=== PATIENT | male | born 1945 | race Caucasian/White ===

== ENCOUNTER → 2018-02-10 12:14 | Outpatient (CLI) | payer MEDICARE, OTHER, SELFPAY ==
[2018-02-10 12:48] LABS: 585 Gram Check PASS; Amount Collected in g 585 GRAM; Dizziness NO; Postdiastolic BP 76; Postsystolic BP 121; Prediastolic 77; Presystolic 136; Pulse 71; Site of phlebotomy RIGHT AC; Swelling NO; Therapeutic Phleb Comment NO COMMENT; Zero Check Sebra Scale PASS
[2018-02-10 13:07] LABS: Add Manual Diff / Slide Review NO; Basophils Percent Auto 1.1 % (0-2); Eosinophils Percent Auto 1.2 % (2-4); Hematocrit 52.4 % (41-53); Hemoglobin 18.2 g/dL (13.5-17.5); Lymphocytes Percent Auto 17.6 % (25-40); Mean Corpuscular HGB Conc 34.7 % (30-36); Mean Corpuscular Hemoglobin 31.2 PG (26-34); Mean Corpuscular Volume 89.8 fL (80-100); Neutrophils Absolute Auto 4400 /uL (3000-5900); Neutrophils Percent Auto 69.1 % (50-75); Platelet Count 163 X10^3/uL (150-400); Red Blood Cell Count 5.83 X10^6/uL (4.5-5.9); Red Cell Distribution Width 14.6 % (11.6-14.8); White Blood Cell Count 6.4 X10^3/uL (4.5-11.0)
[2018-02-10 13:41] LABS: Alanine Aminotransferase 48 IU/L (21-72); Albumin 4.7 g/dL (3.5-5.0); Albumin Globulin Ratio 1.5 (1.0-2.8); Alkaline Phosphatase 71 U/L (38-126); Aspartate Aminotransferase 38 IU/L (17-59); BUN Creatinine Ratio 13.6 (6-22); Bilirubin Total 1.2 mg/dL (0.2-1.3); Blood Urea Nitrogen 15 mg/dL (9-20); Calcium 9.5 mg/dL (8.4-10.2); Carbon Dioxide 27 mmol/L (22-32); Chloride 100 mmol/L (98-107); Estimated Glomerular Filt Rate > 60.0 mL/min (>60); Globulin 3.2 g/dL (1.7-4.1); Glucose 85 mg/dL (80-110); HEMOLYSIS 32 (0-50); Potassium 3.7 mmol/L (3.4-5.1); Sodium 142 mmol/L (137-145); Total Protein 7.9 g/dL (6.3-8.2)
== END ==
PROVIDERS: Family Provider Family Medicine; PCP Family Medicine; Visit Provider Internal Medicine Hematology & Oncology
DX: D75.1 Secondary polycythemia (principal)
CPT/HCPCS: 80053; 85025; 99195

== ENCOUNTER 2020-06-21 12:53 | Day surgery (SDC) | payer MEDICARE, OTHER, SELFPAY ==
--- NOTE | 2020-06-20 19:24 | PM.PREOP ---
Pre-operative Note COVID-19 COVID-19 status: Negative Interval Note History & Physical reviewed/Exam performed by Physician: Yes Changes to H&P: No
--- NOTE | 2020-06-21 08:01 | P.OP_ITS ---
Operative Date/Time/Diagnoses Date of procedure: 06/21/20 Time of procedure: 13:15 Procedure & Clinicians Procedure: Preoperative diagnoses: 1. Left nuclear sclerotic and cataract. 2. Astigmatism which is to be corrected with a toric intraocular lens implant and increased range of vision with Vivity toric lens. 3. Enlarged prostate without use of Flomax. 4. Previous Flomax. Postoperative diagnoses: 1. Cataract removal with phacoemulsification with toric posterior chamber intraocular lens implant placed. Procedure: Phacoemulsification with posterior chamber toric intraocular lens implant. Surgeon: Iraida qIbal MD Complications: None Specimen: None Implant: [id number] [place] 174. 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 He plays golf and 7 exceptional problems seeing the ball. The patient wants surgery to improve vision and astigmatism and increased range of vision with a specialty intra-ocular lens. He understands he will need reading glasses. He understands extra risk of surgery during the COVID-19 epidemic and wishes to proceed. He has tested COVID-19 virus negative within 72 hours of the procedure. The patient was taken to the operating room and proparacaine drops placed. Indelible ink barajas were placed at the 90 and 180 degree meridian. The patient was placed on the operating room table and given IV sedation. A retrobulbar block insert consisting of 6 cc of 2% xylocaine without epinephrine mixed half and half with 0.5% Marcaine with 1 cc of hyaluronidase added is placed between the medial and lateral 1/3 of the inferior orbital rim. The eye is manually massaged for 30 sec, prepped using Betadine solution, and draped in the usual sterile fashion. Temporal approach was made, a 1 mm side-port incision was made 90? from the proposed corneal wound. Phenylephrine 1.5% mixed with 1% xylocaine 0.2 cc was placed into the anterior chamber. Viscoat followed by Healon was then placed. A 2.6 mm clear incision with a 2.6 mm blade was placed at the 170 degree meridian. A 360 degree capsulorrhexis style capsulotomy was then performed with a cystitome needle on a Healon. Hydrodelineation and hydrodissection were performed. The phacoemulsification unit is introduced, and sculpting used to groove the central lens. It is then removed in chopping mode. Epi nucleus is removed with epinuclear mode and irrigation aspiration was used to remove the peripheral cortex. The posterior capsule is polished. The intraocular lens is selected, inspected, power confirmed, and placed in the posterior chamber at the desired meridian of 175?. The pupil was not constricted. The wound was stromally hydrated and tested for leaks, there was none and it was left sutureless. Vigamox 0.1 cc was placed into the anterior chamber. Kenalog 0.2 cc was placed in the superior subconjunctival space. A drop of antibiotic and was placed and the eye was patched and shielded. The patient was stable and returned to the recovery room in excellent condition. Dictated by: Iraida Iqbal MD Copy to: [facility] Same procedure as scheduled: Yes
[2020-06-21] MEDS: PROPARACAINE 0.5% OPHTH SOL 2 DROPS EYE-OP (13:28)
[2020-06-21] MEDS: CATARACT EYE COMPOUND (10 DROPS/SYRINGE) 3 DROPS EYE-OP (13:29)
[2020-06-21 13:34] VITALS: BP 116/74; PULSE 68; RESP 16; TEMP 36.3; O2SAT 97; BMI 31.0
[2020-06-21] MEDS: LIDOCAINE 2% 4 ML, BUPIVACAINE 0.5% (PF) 4 ML, HYALURONIDASE 150 UNIT INJ (17:07)
[2020-06-21] MEDS: PHENYLEPHRINE/LIDOCAINE VIAL (OR) 0.2 ML EYE-OP (17:08)
[2020-06-21] MEDS: HYALURONATE SODIUM 10 MG/ML SYRINGE INJ (17:08)
[2020-06-21] MEDS: CHONDROIDTIN/SOD HYALURONATE 1.05 ML SYRINGE INTRAOCULA (17:08)
[2020-06-21] MEDS: BALANCED SALT IRRIG SOLN NO.2 500 ML, EPINEPHrine 1 MG IRR (17:08)
[2020-06-21] MEDS: TRIAMCINOLONE 50 MG/5 ML VIAL INJ (17:09)
[2020-06-21] MEDS: MOXIFLOXACIN INJ 4 MG/0.8 ML VIAL 0.5 MG EYE-OP (17:09)
[2020-06-21] MEDS: ERYTHROMYCIN OPHTH 1 GM OINT 1 APPLIC EYE-LEFT (17:09)
[2020-06-21 17:35] VITALS: BP 130/77; PULSE 65; RESP 16; TEMP 36.5; O2SAT 96
== END 2020-06-21 17:45 | disposition home or self-care (01) ==
LOC: OR 13:00
PROVIDERS: Family Provider Family Medicine; PCP Family Medicine; Referring Provider Ophthalmology; Visit Provider Ophthalmology
PROC: (CPT 66984; principal; 2020-06-21 14:15)
DX: H25.812 Combined forms of age-related cataract, left eye (principal); H52.202 Unspecified astigmatism, left eye; I10 Essential (primary) hypertension
CPT/HCPCS: 66984; J0171; J2704; J3301; J3470; V2788

== ENCOUNTER 2021-03-14 11:27 | Observation (INO) | payer MEDICARE, OTHER, SELFPAY ==
[2021-03-06 09:58] VITALS: BMI 30.8
[2021-03-13] VITALS (16 sets, daily range): BP systolic 107–165; BP diastolic 60–86; PULSE 66–86; RESP 13–18; TEMP 36.6–37.9; O2SAT 93–99; BMI 30.8
--- NOTE | 2021-03-13 07:11 | DI.RAD.S_ITS ---
PROCEDURE: XR HIP W PEL IF DONE RT 2V INDICATIONS: total right hip TECHNIQUE: AP pelvis and lateral view of the right hip acquired. COMPARISON: [facility], FAYE, XR PELVIS 1-2V, 03/13/2021, 12:39. FINDINGS: Bones: Patient is status post right hip arthroplasty, with hardware components in expected positions. The hip joint appears congruent. Severe left hip joint space narrowing and periarticular osteophyte formation. The visualized bony structures appear intact. Soft tissues: Overlying postoperative changes are noted. No suspicious soft tissue densities. IMPRESSION: Expected appearance of right hip arthroplasty. Dictated by: Agens Ortiz M.D. on 03/13/2021 at 16:47 Approved by: Agnes Ortiz M.D. on 03/13/2021 at 16:48
[2021-03-13 10:04] LABS: COVID19 -Nasal RAPID Negative (Negative)
[2021-03-13] MEDS: ACETAMINOPHEN 325 MG TABLET 975 MG PO (10:05)
[2021-03-13] MEDS: VANCOMYCIN 1,000 MG/200 ML PIGGYBACK 200 MG IV (10:10)
--- NOTE | 2021-03-13 10:57 | P.OP_ITS ---
Operative Date/Time/Diagnoses Date of procedure: 03/13/21 Time of procedure: 10:59 Pre-op diagnosis: Severe right hip osteoarthritis Post-op diagnosis: same Procedure & Clinicians Procedure: Right total hip arthroplasty posterior approach Same procedure as scheduled: Yes Indications: The patient has had progressively worsening right hip pain with radiographic changes consistent with arthritis. Non-operative management has failed and the patient has requested total hip replacement. The risks, benefits and alternatives to surgery were discussed with the patient prior to proceeding. Risks discussed included, but were not limited to, failure to relieve pain, leg length discrepancy, dislocation, stiffness, infection, nerve damage, deep venous thrombosis, pulmonary embolism, stroke, coma, heart attack, permanent paralysis and , as well as the potential need for eventual revision of the prosthetic. Surgeon: Nicki Arredondo Platform Power Technician: Abby Keyes Anesthesia Type: General Operative Notes Findings: Severe right hip osteoarthritis, adequate stability, adequate bone Closure Type: primary Specimen(s): none sent Prosthetic devices, grafts, tissues, transplants, or devices: Arredondo and nephew anthology size 10 standard, 58 mm R3, 36 by - 3 cobalt chrome, neutral poly liner, one 15 mm 6.5 screw Applied: drain(s) Estimated Blood Loss (mL): 250 Blood products transfused: none Procedure in detail: The patient was seen in the pre-operative area, where the patient identified the right hip as the operative site and this was marked with my initials. The patient received pre-operative antibiotics and was taken to the operating room and placed on the operative table in the left lateral decubitus position after satisfactory anesthesia. A horse race timer out was performed. The right leg was prepared from the ankle to the iliac crest with ChloroPrep in the usual fashion and draped through sterile drapes. The hip was approached through an approximately 20 cm incision centered over the greater trochanter and curving gently posteriorly as it went proximally. This was carried sharply to the fascia sayda, which was divided and retracted with a self retaining retractor. The trochanteric bursa was excised with care being taken to avoid the sciatic nerve, which was identified and protected throughout the case. The short external rotators were incised and the capsulomuscular flap was raised and tagged for later repair. He had an extremely tight hip and extensive additional soft tissue mobilizing was required in order to provide adequate exposure. The hip was dislocated, and a femoral neck osteotomy performed approximately 15 mm above the lesser trochanter. Retractors were placed around the femur. The canal was opened with a box cutting osteotome, followed by a T handled reamer and a lateralizing reamer. The chili pepper broach was then used, followed by sequential broaching until there was good stability of the broach in the femur. Retractors were placed to expose the acetabulum. The labrum and central soft tissues were removed. There was moderate osteophyte formation around the hip. Was somewhat difficult to mobilize the femur anteriorly as he had a substantial preoperative flexion contracture as well as an Abduction contracture. Reaming was performed initially going up in 2 mm increments, then 1 mm increments until good bite was obtained with an odd sized reamer. The cup 1 mm larger than the last reamer was then inserted using the appropriate anteversion guides. A trial neutral liner was placed. The broach was placed in the canal. A trial head and neck were then placed and the hip relocated and checked for leg length and stability. An intraoperative film confirmed the component position and no evidence of fracture. The patient was stable in the position of sleep, of squatting, and could be put through a range of motion with 45 degrees internal rotation without dislocation. At 90 degrees flexion, internal rotation to 70 ? was possible before dislocation. This was felt to be satisfactory and the appropriate components were opened, and the trials were removed. The acetabulum was further stabilized with a single screw. The acetabular liner was impacted into position. The final stem was then impacted into the prepared femoral canal. A brief Betadine soak was performed while trialing with head options. The hip was meticulously irrigated with normal saline. Finally the femoral head was impacted onto the stem. The acetabulum was cleared of all material and the hip relocated one final time. The capsulomuscular flap was then repaired to the greater trochanter though an awl hole using the tag sutures. The short external rotators were repaired with a nonabsorbable suture. A deep drain was placed and brought out anteriorly. The fascia sayda was closed with Vicryl. The subcutaneous layer was closed with barbed sutures and SteriStrips. An Aquacel Ag dressing was applied and the patient was taken to recovery having tolerated the procedure well. Complications: none Post-operative Condition: stable Disposition: Acute Care Plan for aftercare: The patient will be maintained on a standard total hip replacement protocol with weight bearing as tolerated and posterior hip precautions. The patient will receive Aspirin and sequential compression devices for DVT prophylaxis. The patient will be discharged home when safe for the home environment.
--- NOTE | 2021-03-13 10:57 | PM.PREOP ---
Pre-operative Note COVID-19 COVID-19 status: Negative Interval Note History & Physical reviewed/Exam performed by Physician: Yes Changes to H&P: No
--- NOTE | 2021-03-13 11:00 | DI.RAD.S_ITS ---
PROCEDURE: XR PELVIS 1-2V INDICATIONS: INNER OP TECHNIQUE: Intra-operative view of the pelvis and hip acquired. COMPARISON: [facility], CR, XR PELVIS WITH BILATERAL LATERAL HIPS, 11/08/2020, 13:58. [facility], CR, XR HIP W PEL IF DONE RT 2V, 03/13/2021, 14:08. FINDINGS: Bones: Intraoperative devices prior to placement of arthroplasty prostheses are in expected positions. No fractures or suspicious bony lesions. Severe left hip osteoarthrosis. Soft tissues: Overlying surgical retractors are present, along with other intraoperative changes. IMPRESSION: Intraoperative images demonstrate right hip arthroplasty components. Dictated by: Deep Sparks M.D. on 03/13/2021 at 14:40 Approved by: Deep Sparks M.D. on 03/13/2021 at 14:41
[2021-03-13] MEDS: TRANEXAMIC ACID 1,000 MG VIAL 2000 MG INJ ×2 (11:21→13:18)
[2021-03-13] MEDS: CEFAZOLIN 2 GM/20 ML SYRINGE IV ×2 (11:30→19:57)
--- NOTE | 2021-03-13 11:40 | SUR.OPER ---
Lateral on padded OR bed. Gel axillary roll. Arms secured on padded armboard with pillow supporting top arm. Padded hip positioner braces x4 - anterior and posterior chest and pelvis. Additional gel pad used anterior pelvis. Gel pad under bottom leg from knee to foot and secured with tape over sheet.
[2021-03-13] MEDS: BUPIVACAINE LIPOSOME 266 MG/20 ML VIAL INJ ×2 (11:49→11:50)
[2021-03-13] MEDS: BUPIVACAINE 0.25% (PF) 60 ML, EPINEPHrine 0.3 MG INJ (11:49)
[2021-03-13] MEDS: LACTATED RINGERS 1,000 ML 42 ML IV (12:22)
--- NOTE | 2021-03-13 14:59 | SUR.PHASEI ---
Pt very stoic and denies pain. Report to JACQUELYN Soto. Transported by Kathya to room 222. Pt in stable condition
[2021-03-13] MEDS: ACETAMINOPHEN 325 MG TABLET 650 MG PO ×2 (17:01→20:02)
[2021-03-13] MEDS: IBUPROFEN 400 MG TABLET PO ×2 (17:01→20:03)
[2021-03-13] MEDS: LACTATED RINGERS 1,000 ML 125 ML IV (17:02)
--- NOTE | 2021-03-13 18:11 | PC.NURSE ---
1500, patient admitted to room 222, at bedside. Awake and oriented but sleepy. VSS. Denies pain. Oriented to room and call light. Aquacel dressing and hemovac in place. Patient moving all extremities, denies numbness or tingling. Urinal place at bedside. Continue to monitor.
[2021-03-13] MEDS: ASPIRIN EC 81 MG TABLET PO (20:03)
[2021-03-13] MEDS: DOCUSATE 100 MG CAPSULE PO (20:03)
[2021-03-14] MEDS: IBUPROFEN 400 MG TABLET PO ×4 (01:25→13:52)
[2021-03-14] MEDS: CEFAZOLIN 2 GM/20 ML SYRINGE IV (03:35)
[2021-03-14 03:58] VITALS: BP 128/69; PULSE 79; RESP 17; TEMP 36.7; O2SAT 97
[2021-03-14 05:43] LABS: Hematocrit 41.7 % (41-53); Hemoglobin 14.3 g/dL (13.5-17.5)
[2021-03-14 08:25] VITALS: BP 116/60; PULSE 63; RESP 16; TEMP 36.8; O2SAT 97
[2021-03-14] MEDS: ACETAMINOPHEN 325 MG TABLET 650 MG PO ×2 (09:29→13:52)
[2021-03-14] MEDS: hydroCHLOROthiazide 25 MG TABLET 12.5 MG PO (09:30)
[2021-03-14] MEDS: lisinopriL 20 MG TABLET PO (09:30)
[2021-03-14] MEDS: DOCUSATE 100 MG CAPSULE PO (09:30)
[2021-03-14] MEDS: ASPIRIN EC 81 MG TABLET PO (09:30)
[2021-03-14] MEDS: allopurinoL 300 MG TABLET 100 MG PO (09:31)
[2021-03-14] MEDS: CHOLECALCIFEROL (VITAMIN D3) 1,000 UNIT TABLET 2000 UNIT PO (09:31)
--- NOTE | 2021-03-14 09:41 | P.DS_ITS ---
History of Present Illness History of Present Illness Date Patient Seen: 03/14/21 Time Patient Seen: 09:42 Chief complaint: RT ANDREY *OPB* Narrative: The patient presented to Dr Arredondo with progressively worsening right hip pain with radiographic changes consistent with arthritis. Non-operative management has failed and the patient has requested total hip replacement. Prosthetic devices, grafts, tissues, transplants, or devices: Arredondo and nephew anthology size 10 standard, 58 mm R3, 36 by - 3 cobalt chrome, neutral poly liner, one 15 mm 6.5 screw Applied: hemovac drain(s) Estimated Blood Loss (mL): 250 Blood products transfused: none Aspiring 81 mg once daily only x 6 weeks for VTE prophylaxis d/t pt history of thrombocytopenia. Discharge Providers Provider Date of admission: 03/13/2021 Discharge Date: 03/14/21 Primary care physician: Jim Tovar MD Consults: 03/06/21 11:57 Consult to Anesthesiology Routine Comment: Consulting Provider: Anesthesiologist Reason for consultation: PAC courtesy re: Cardiology pre-operative recommendations 03/13/21 07:11 Consult to Anesthesiology Routine Comment: Consulting Provider: Anesthesiologist Reason for consultation: Regional block for post operative pain control 03/13/21 14:58 Consult to Discharge Planning Routine Comment: Consult to Physical Therapy Evaluate & Treat Comment: Physician Instructions: post op ANDREY protocol Consult to Respiratory Therapy Evaluate & Treat Comment: Physician Instructions: Evaluate and treat Discharge provider: Abby Keyes PA-C Summary Hospital Course Discharge Diagnosis: s/p RIGHT total hip arthroplasty, posterior approach Hospital Course: On POD#1 pt was feeling well, had 0/10 pain without the use of narcotic pain medication. No N/V, good appetite. Urinating without difficulty. Wanted to go home, denied need for narcotic prescription. Status at Discharge Cognitive/behavioral status at discharge: oriented and calm Functional status at discharge: uses cane/walker Exam Vital Signs (past 8 hours): - 03/14/21 03:58 03/14/21 08:25 Temperature 98.1 F 98.3 F Pulse Rate 79 63 Respiratory Rate 17 16 Blood Pressure 128/69 116/60 Pulse Oximetry 97 97 Oxygen Delivery Method Room Air Oxygen Flow Rate 0 Extrem Other: 5/5 strength quadriceps, hamstrings, plantarflexion, dorsiflexion bilaterally. Sensation to light touch intact throughout BLE. Calves soft, compressible, nontender and without palpable cords or masses bilaterally. Objective Labs Result Diagrams: 03/14/21 05:02 Labs: Laboratory Results - last 24 hr 03/13/21 03/14/21 09:28 05:02 Hgb 14.3 Hct 41.7 SARS-CoV-2 (PCR) Negative PFSH Medical History (Updated 03/06/21 @ 11:43 by Dorota Duque RN) HTN (hypertension) Inguinal hernia Surgical History (Updated 03/06/21 @ 10:06 by Dorota Duque RN) History of left cataract surgery Hx of right inguinal hernia repair (1961) Status post cholecystectomy Family History (Updated 05/26/16 @ 00:00 by Conversion Provider) Father Prostate cancer Social History household members: spouse Smoking Status: Former smoker alcohol intake: former Discharge Assessment & Plan Assessment and Plan Assessment: S/p RIGHT total hip arthroplasty. Recovery as expected. Plan of Treatment: Discharge home, continue outpatient PT, VTE prophylaxis, and follow up in office as scheduled. Discharge Plan Discharge Plan Patient Disposition: Home Discharge orders & Medications Discharge Orders: Discharge (Order); Ordered 03/14/21 Ordered By: Abby Keyes Prescriptions: New aspirin 81 mg Tablet,Delayed Release (Dr/Ec) 81 mg PO DAILY Qty: 60 0RF ibuprofen 400 mg Tablet 400 mg PO Q4HR Qty: 90 0RF Continued lisinopril-hydrochlorothiazide 20 MG/12.5 MG tablet 1 tab PO QDAY Qty: 90 0RF cholecalciferol (vitamin D3) [Vitamin D3] 2,000 unit Capsule 1 cap PO DAILY 0RF allopurinol 300 mg Tablet 100 mg PO DAILY 0RF acetaminophen 500 mg Tablet 1,000 mg PO BID MDD 4000 mg PRN (Reason: Pain) Qty: 60 0RF Follow up/Referrals: Nicki Arredondo MD [Physician] - (Follow up w/ Dr Arredondo as scheduled on 03/28/2021 @ [facility] office @ [id number]) Jim Tovar MD [Primary Care Provider] - Diet/Activity/Treatments Diet: Diet as Tolerated Activity: Weight bearing as tolerated with posterior hip precautions. Ambulate w/ FWW. Cold/Heat Therapy: Ice to affected area for 15 minutes at a time PRN pain. Skin/Wound/Dressing Care Report to your healthcare provider any signs of infection, such as:: chills, fever, night sweats, increased pain, unusual drainage and unusual redness Dressing: Leave Aquacel dressing in place until follow up. May shower with dressing in place; pat dry immediately. No bathing or otherwise soaking incision. Call office if dressing becomes wet inside. Visit Report/Discharge Packet Instructions: DI for Hip Replacement Stand Alone Forms: Surgery Discharge Discharge Data Primary Care Provider: Jim Tovar Attending Provider: Nicki Arredondo
--- NOTE | 2021-03-14 10:01 | PT.IIE ---
Current Diagnoses Unilateral primary osteoarthritis, right hip (03/14/21) Surgery Performed Operation Date: 03/13/21 11:15 Actual Procedures p Total Hip Arthroplasty(Right) - Nicki Arredondo MD Surgical History (Last Updated 03/06/21 @ 10:06 by Dorota Duque, RN) Status post cholecystectomy Medical History (Last Updated 03/06/21 @ 11:43 by Dorota Duque, RN) HTN (hypertension) Inguinal hernia Physical Therapy Inpatient Evaluation/Re-Eval M1 PT/OT-IP Prior Functional Status Start: 03/14/21 12:57 Freq: NEEDED Status: Active Protocol: Document 03/14/21 10:01 AB (Rec: 03/14/21 13:05 AB [id number]) Medical Review Prior Functional Status Medical History Reviewed Yes Communication able to make needs known Mobility and Gait pt stated that he is independent with all mobilities and ambulation without AD Social History Household Members spouse Living Arrangements House Number of Floors (Floors) One Floor Number of Stairs To Enter/Railing? no steps to enter Home Environment High Toilet,Walk in Shower Home Equipment Front Wheel Walker,Hand Held Shower,Postulant M2 PT-IP Current Condition Start: 03/14/21 12:57 Freq: NEEDED Status: Active Protocol: Document 03/14/21 10:01 AB (Rec: 03/14/21 13:05 AB [email or web address]) Physical Therapy Current Condition Current Condition Evaluation Date 03/14/21 Treatment Diagnosis s/p R ANDREY posterior approach; difficulty in walking Onset Date 03/13/20 M3 PT-IP Subjective Start: 03/14/21 12:57 Freq: NEEDED Status: Active Protocol: Document 03/14/21 10:01 AB (Rec: 03/14/21 13:05 AB [email or web address]) Subjective Physical Therapy Visit Type Type Initial Evaluation Visit Start Time 10:01 Visit Stop Time 10:46 Total Visit Minutes 45 Number of SOFTWARE DEVELOPMENT TEST ENGINEER Visits 0 Physical Therapy Visit Comments Patient Comments agreeable to do PT Therapy Pain Assessment Pain When Pain Assessed At Rest Pain Present Pain Present Pain Reported Location Right Hip Intensity 1 Scale Used Numeric (0 - 10) Pain Management Techniques Apply Cold,Modification of Treatment,Re-positioning, Timing of Activity with Medications M4 PT-IP Mobility and Gait Start: 03/14/21 12:57 Freq: NEEDED Status: Active Protocol: Document 03/14/21 10:01 AB (Rec: 03/14/21 13:05 [email or web address]) PT-Bed Mobility Assessment Supine to Sit Supine to Sit Standby Assistance PT-Transfer Assessment Sit to and From Stand Sit to and from Stand Contact Guard Assistance,Use of Upper Extremities Equipment Transfer Assistive Device Gait Belt,Front Wheeled Walker Orthotic/Prosthetic Devices or Brace: No Transfers Transfer Destination Toilet Transfer Technique ambulated Transfer Ability Level of Assist Standby Assistance,Contact Guard Assistance,1 Person Assistance,Use of Upper Extremities Comments Mobility Comments educated pt and spouse regarding posterior hip precautions. pt completed supine to sit SBA. pt requested to use the toilet. completed sit to stand CGA and ambulated to the toilet using FWW CGA. completed toileting SBA. sit to stand from the toilet using grab bar CGA and ambulated to the sink using fWW SBA to CGA. pt was able to maintain standing using FWW for support SBA while completing handwashing. pt ambulated to the chair. educated pt and spouse regarding car transfers and positioning to adhere to hip precautions. pt agreed to do further ambulation. completed sit to stand from chair SBA and ambulated in room using FWW ~ 30 ft SBA to occasional CGA. pt agreed to stay up on chair. positioned on chair. call light and table placed within reach. Gait Assessment Gait Gait Assistance Required: Standby Assistance,Contact Guard Assist Distance (Feet) 30 Able to Maintain Weight Bearing Status Yes During Gait Assistive Devices Assistive Device Gait Belt,Front Wheeled Walker Orthotic/Prosthetic Devices or Brace: No Gait Deviations General Gait Pattern Antalgic,Decreased Stride Length,Decreased Feet Clearance Factors Limiting Gait Function Factors Limiting Gait Function Decreased Activity Tolerance, Decreased Strength,Limited Range of Motion,Pain,Poor Balance PT-Balance Assessment Sitting Balance and Reactions Static Sitting Balance Ability Good Dynamic Sitting Balance Ability Good Standing Balance and Reactions Static Standing Balance Ability Fair Dynamic Standing Balance Ability Fair Device Used FWW M5 PT-IP Objective Assessments Start: 03/14/21 12:57 Freq: NEEDED Status: Active Protocol: Document 03/14/21 10:01 (Rec: 03/14/21 13:05 [id number]) Orientation Orientation/Cognition Level of Alertness Alert Orientation Name,Place,Situation Language Function Ability No Deficits Noted Safety Awareness Understands Safety Issues Memory Description No Deficits Noted Gross Range of Motion Lower Extremity ROM Assessment Within Functional Limits Strength Lower Extremity Strength Assessment Right Impaired Hip 3+/5 Knee 4-/5 Coordination Assessment Gross Coordination Gross Coordination WNL Sensation Assessment Sensation Gross Sensation WNL Muscle Tone Muscle Tone WNL Yes M6 PT-IP Treatment Start: 03/14/21 12:57 Freq: NEEDED Status: Active Protocol: Document 03/14/21 10:01 AB (Rec: 03/14/21 13:05 AB [id number]) Physical Therapy Treatment Education Education Provided Precautions,Weight Bearing Status,Post-Op Packet,Safety M7 PT-IP Assessment and Plan Start: 03/14/21 12:57 Freq: NEEDED Status: Active Protocol: Document 03/14/21 10:01 AB (Rec: 03/14/21 13:05 AB [email or web address]) PT Summary Assessment and Plan Potential Rehabilitation Potential Good Status of Condition at Evaluation Stable Summary Impairments Pain,ROM,Strength,Balance, Coordination,Sensation,Tone, Cognition,Bed Mobility, Transfers,Gait,Activity Tolerance Assessment Summary pt requirng SBA to CGA with mobility using FWW. pt will have his spouse to assist him at home and is set up for outpt PT. pt may go home when medically stable. Goals Bed Mobility Goal Independent Transfer Goal Independent,Front Wheeled Walker Gait Goal Independent,Front Wheel Walker Gait Distance 200 Days to Meet Goals 5 Frequency of Treatment Frequency Of Treatment Twice a Day Treatment Plan Physical Therapy Treatment Plan Bed Mobility Training,Transfer Training,Gait Training, Therapeutic Exercise,Balance Retraining,Post Op Education, Discharge Planning,Hot or Cold Pack,Neuromuscular Re-ed, Coordination Retraining,Manual Therapy Precautions Posterior Hip Precautions No Hip Flexion > 90 degrees,No Hip Internal Rotation,No Hip Adduction Weight Bearing Status Weight Bearing Status Weight Bear as Tolerated Allowed Weight Bearing Amount (enter % RLE WBAT or #) (%) Recommendations To Nursing Amount of Assist Needed 1 Person Assist Discharge Recommendations PT Discharge Recommendations Home with Assistance, Outpatient PT Transportation Needs at Discharge Private Vehicle
--- NOTE | 2021-03-14 10:53 | CM.DANOTE ---
Patient is a 76 yo male who was admitted on 03/13/21 for RTHA. Pt has [employer] and [employer] for insurance and his PCP is Jim Tovar on [facility]. EMR was reviewed. Per Ortho PA, pt tolerated procedure well and stable for d/c to home today after PT. SW met bedside with pt and explained role and pt confirms he lives on [address] with his spouse and has family in [place] but local supportive friends. Pt's DPOA is his spouse and he denies any hx of HH or SNF. Pt is an active golfer and independent with ADL's at baseline and drives. Pt denies any hx of Ortho surgery or admissions and does not anticipate any needs at d/c. Pt states he has used outpt PT prior to surgery on [place] and has appointment set up already after d/c to continue PT. Pt is hopeful to d/c home today and spouse will provide transport home. Per PT, pt ambulated well and recommending home with spouse assist and outpt PT. Plan: Patient to d/c home to [place] via spouse POV today and outpt PT already set up. No further SW needs at this time. ERNESTO Solano Discharge Planning/Care Management CM Discharge Assessment Start: 03/14/21 10:47 Freq: Status: Active Protocol: Document 03/14/21 10:47 BF (Rec: 03/14/21 10:53 BF [id number]) Discharge Planning Assessment Assigned Hay Stacker Operator ERNESTO Gleason DPOA/Assigned Designee Name spouse Vega Cooper Contact Information [phone] Advance Directives? Yes Advance Directives on File No History Provided By Patient,Medical Record Has Patient been admitted in last 30 No days? Prior Living Arrangements House Household Members spouse Type of transporation used prior to Drives own vehicle admit Independent with ADL's Yes Is patient alert and oriented? Yes Caregiver for Another No Community Services used prior to Physical Therapy admission: Patient/Family Preference OP PT Therapy Barriers to Discharge No Discharge Plan Home Community Services Physical Therapy Transportation Arrangement Spouse plans to provide transport at d/c Referrals Initiated None needed Whiteboard Updated in Patient Room with Yes name and ext. # of Hay Stacker Operator Review Status In Process Please Provide Date Initial DC 03/14/21 Assessment Was Performed Next Review Type Continued Stay Review Pre-Anesthesia Assessment Start: 03/06/21 09:58 Freq: Status: Complete Protocol: Document 03/06/21 09:58 CAB (Rec: 03/06/21 11:02 [facility] [id number]) Pre-Anesthesia Assessment Preferred Name Gregory Patient Information Reviewed Via Phone Assessment Assessment Completed With Patient Comment Outside labs/EKG done on JOSE Panda screen on [place] Primary Care Provider Jim Tovar Seen Specialist in Last 12 Months Yes Specialist Seen Handbag Stitcher,Oncologist, Orthopedist Primary Language Belarusian Toll Gate Keeper Required No Height 175.26 cm Weight 94.801 kg Body Mass Index (BMI) 30.8 Hearing Ability Normal Visual Impairment No Limitations Visual Assist None Dentition Type Teeth, Natural Present Barriers to Learning None Hx Anesthesia Reactions No Hx Family Anesthesia Reaction No Hx Malignant Hyperthermia No Hx Blood Transfusions No Hx Blood Transfusion Reaction No Anesthesia Review Requested Yes: Cardiology requesting Arterial line placement alcohol intake former Smoking Status Former smoker how long ago did patient quit smoking 1980 Substance Use Type does not use Pain Present Pain Reported Musculoskeletal Symptoms Abnormal Gait,Difficulty Walking,Joint Pain,Muscle Cramps,Neck Pain History of Falling (Recent or History of No ) Patient is completely paralyzed or No completely immobile Mental Status Oriented to own ability Is patient on oxygen? No Does patient have MENDIOLA/SOB No Hx Sleep Apnea No CPAP/BIPAP use not prescribed Currently Taking a Beta Callum No Hx Chest Pain No Hx SOB No Hx Syncope or Dizziness No Anti-Coagulant Therapy No Has a Handbag Stitcher Yes: Dr. Bateman Cardiac Testing Yes Hx Pacemaker/ICD No Pacemaker Rep Required? No Cardiac Clearance Received Yes Diet Type At Home Regular dysphagia No Bladder Pattern Frequency Urinary Catheter Present No Hx Urinary Self Catheterization No Diabetes No Hx Drug Resistant Organism No Presence of External or Internal Medical Yes: Left eye IOL Devices Have you had any close contact with No someone diagnosed with COVID-19? Received a COVID vaccine? Yes Received all doses? Yes Marital Status Lives With spouse Prior Living Arrangements House Number of Floors (Floors) One Floor Support System Spouse Does the Patient Have Assistance After Yes Surgery Patient Discharge Plan Description Return Home Comment Pt not advised on length of stay per surgeon Feels Safe in Current Environment Yes Been Physically Hurt or Threatened By a No Person in Current Environment Do you have thoughts of harming yourself None or others? Are you currently considering suicide? No Do you have a plan to hurt yourself or No Plan others? Do You Have Any Spiritual Beliefs That No May Affect Your HC Choices? Do You Have Any Cultural Practices That No May Affect Your HC Choices? Comment Bishop Who Can We Speak to About Patient's Care Family, friends Identifying Code for Release of Patient Declines to issue Information Health Care Proxy/Next of Kin Vega () Health Care Proxy Emergency Contact Name Vega () Emergency Contact Advance Directives? Yes Advance Directives on File No Requested Patient Bring Advanced Yes Directives DOS Power of Driller Helper Yes Power of Driller Helper Name Vega Power of Driller Helper PAC Instructions Durable medical equipment, Medications to take/avoid, Nasal antibiotic,No ETOH/ petroleum product on skin DOS, NPO,Post-op transportation,Pre -surgical wash,Sturdy shoes/ comfortable clothes
--- NOTE | 2021-03-14 14:13 | PC.NURSE ---
Day shift: Pt left unit at approx 1410 via WC. Taken to car in by LORETTA Vences. Param remains CDI. PPP and CMS ok. Ambulating well w/ FWW. scripts sent to Pt's pharmacy electronic. Pain well controlled per MAY. Voids well. Pt's spouse in driving them to [facility] and then home on [address]. Paperwork signed and all questions answered.
== END 2021-03-14 14:16 | disposition home or self-care (01) ==
LOC: OR 11:34 → AC 11:34
PROVIDERS: Admitting Provider Orthopaedic Surgery; Family Provider Family Medicine; PCP Family Medicine; Referring Provider Orthopaedic Surgery; Visit Provider Orthopaedic Surgery
PROC: 0SR90JZ Replacement of Right Hip Joint with Synthetic Substitute, Open Approach (ICD-10-PCS; CPT 27130; principal; 2021-03-13 11:15)
DX: M16.11 Unilateral primary osteoarthritis, right hip (principal); Z20.822 Contact with and (suspected) exposure to COVID-19; I10 Essential (primary) hypertension
CPT/HCPCS: 27130; 36415; 72170; 73502; 85014; 85018; 87635; 97161; 97530; C1776; G0378; C9290; J0171; J0330; J0690; J1100; J1170; J2405; J2704; J3010

== ENCOUNTER 2022-04-15 19:51 | Emergency (ER) | payer MEDICARE, OTHER, SELFPAY ==
[2021-03-13 15:29] VITALS: BMI 30.8
[2022-04-15] VITALS (7 sets, daily range): BP systolic 110–142; BP diastolic 55–80; PULSE 67–94; RESP 18; TEMP 36.3; O2SAT 95–98; BMI 31.0
[2022-04-15] MEDS: LIDOCAINE 2% (GLYDO) 6 ML GEL TOP (20:07)
--- NOTE | 2022-04-15 20:32 | ED.GENADULT ---
HPI - General Adult General Chief complaint: Urogenital-Male Stated complaint: cant urinate x3 Time Seen by Provider: 04/15/22 20:08 Source: patient Mode of arrival: Ambulatory Limitations: no limitations History of Present Illness HPI narrative: Patient is a 77-year-old male who is here for evaluation of urinary retention. He states that 3 days ago he started to have problems with urinating. Yesterday symptoms seem to get much worse. He saw providers on [place] where he lives where he had a in and out catheter performed to drain his bladder and he was sent to the emergency department. He has Flomax at home. He has taken a dose of it today. Related Data Home Medications Medication Instructions Recorded Confirmed cholecalciferol (vitamin D3) 50 1 cap PO DAILY 01/30/18 03/13/21 mcg (2,000 unit) capsule (Vitamin D3) allopurinol 300 mg tablet 100 mg PO DAILY 06/08/20 03/13/21 Previous Rx's Medication Instructions Recorded lisinopril 20 1 tab PO QDAY #90 tabs 10/10/16 mg-hydrochlorothiazide 12.5 mg tablet acetaminophen 500 mg tablet 1,000 mg PO BID PRN Pain #60 tabs 03/14/21 aspirin 81 mg tablet,delayed 81 mg PO DAILY #60 tabs 03/14/21 release ibuprofen 400 mg tablet 400 mg PO Q4HR pain #90 tabs 03/14/21 tamsulosin 0.4 mg capsule (Flomax) 0.4 mg PO DAILY #30 caps 04/15/22 Allergies Allergy/AdvReac Type Severity Reaction Status Date / Time Penicillins [PENICILLINS] Allergy Mild RASH, Verified 03/13/21 10:08 SWEATING Tetanus Vaccines and Toxoid Allergy Mild RASH Verified 03/13/21 10:08 [TETANUS VACCINES & TOXOID] aspirin [ASPIRIN] AdvReac Mild JOINT PAIN Verified 03/13/21 10:08 Review of Systems Constitutional Constitutional: Reports system reviewed and no additional complaints, except as documented Gastrointestinal Gastrointestinal: Reports system reviewed and no additional complaints, except as documented Genitourinary Genitourinary: Reports system reviewed and no additional complaints, except as documented Patient History Medical History HTN (hypertension) Inguinal hernia Surgical History (Updated 03/06/21 @ 10:06 by Dorota Duque RN) History of left cataract surgery Hx of right inguinal hernia repair (1961) Status post cholecystectomy Family History (Updated 05/26/16 @ 00:00 by Conversion Provider) Father Prostate cancer Social History household members: spouse Smoking Status: Former smoker alcohol intake: former Smoking Status: Former smoker Substance Use Type: does not use Exam Initial Vital Signs Initial Vital Signs: Vital Signs Temperature 97.3 F L 04/15/22 19:56 Pulse Rate 91 H 04/15/22 19:56 Respiratory Rate 18 04/15/22 19:56 Blood Pressure 142/67 H 04/15/22 19:56 Pulse Oximetry 98 04/15/22 19:56 Oxygen Delivery Method 04/15/22 19:56 GI Inspection: non-distended Other: Costa catheter in place Course Orders Ordered: ED Orders 04/15/22 20:26 Urinalysis and Microscopic Stat Urine Culture Stat Discontinued Medications Lidocaine HCl (Lidocaine 2% (Glydo) 6 Ml Gel) 6 ml TOP NOW ONE Stop: 04/15/22 20:04 Last Admin: 04/15/22 20:07 Dose: 6 ml Documented By: YOUNG Tamsulosin HCl (Tamsulosin 0.4 Mg Capsule) 0.4 mg PO NOW ONE Stop: 04/15/22 20:56 Last Admin: 04/15/22 21:02 Dose: Not Given Documented By: YOUNG Vital Signs Vital signs: Vital Signs - 8 hr 04/15/22 19:56 04/15/22 20:05 04/15/22 20:06 Temperature 97.3 F L Pulse Rate 91 H 86 87 Respiratory Rate 18 Blood Pressure 142/67 H Pulse Oximetry 98 95 96 Oxygen Delivery Method Room Air 04/15/22 20:06 04/15/22 20:27 04/15/22 20:30 Temperature Pulse Rate 67 Respiratory Rate Blood Pressure 134/80 122/59 L Pulse Oximetry Oxygen Delivery Method 04/15/22 20:31 04/15/22 21:00 04/15/22 21:00 Temperature Pulse Rate 94 H 86 Respiratory Rate Blood Pressure 110/55 L Pulse Oximetry 95 95 Oxygen Delivery Method Room Air Room Air Medical Decision Making Lab Data Labs: Lab Results 04/15/22 Range/Units 20:26 Urine Color Yellow Urine Appearance Clear Urine pH 5.0 (4.5-8.0) Ur Specific [place] 1.020 (1.000-1.035) Urine Protein Negative (Negative) Urine Glucose (UA) Negative (Negative) g/dL Urine Ketones Negative (NEGATIVE) Urine Occult Blood 2+ H (Negative) Urine Nitrate Negative (Negative) Urine Bilirubin Negative (NEGATIVE) Urine Urobilinogen 0.2 (0.2) E.U./dL Ur Leukocyte Esterase Negative (NEGATIVE) Urine RBC 5-10/hpf H (0-5/HPF) Urine WBC 1-5/hpf (0-5/HPF) Urine Bacteria Few (2-10) H (None) Hyaline Casts 1-5/lpf (None) Ur Culture Indicated? Cult not indicated MDM Narrative Medical decision making narrative: Patient had Costa catheter placed by nursing staff prior to my evaluation secondary to urinary retention. The urinalysis does not show any signs of an infection but does have bacteria. Urine culture was obtained. He did take a dose of Flomax today. We will leave the catheter in place. Will have him continue to take the Flomax. He was given instructions for follow-up with Urology. He was given return precautions. Discharge Plan Departure Patient Disposition: Home Clinical Impression: Acute urinary retention Instructions: How to Care for Your Costa Catheter -- Male, DI for Urinary Retention in Men Activity Restrictions/Additional Instructions: I do recommend that tomorrow you contact the urologist office at the number provided below for a follow-up. Continue to take the Flomax on a daily basis. Return to the emergency department for new symptoms. Prescriptions: New tamsulosin [Flomax] 0.4 mg capsule 0.4 mg PO DAILY Qty: 30 0RF No Action lisinopril-hydrochlorothiazide 20 MG/12.5 MG tablet 1 tab PO QDAY Qty: 90 0RF cholecalciferol (vitamin D3) [Vitamin D3] 2,000 unit Capsule 1 cap PO DAILY allopurinol 300 mg Tablet 100 mg PO DAILY aspirin 81 mg Tablet,Delayed Release (Dr/Ec) 81 mg PO DAILY Qty: 60 0RF ibuprofen 400 mg Tablet 400 mg PO Q4HR Qty: 90 0RF acetaminophen 500 mg Tablet 1,000 mg PO BID MDD 4000 mg PRN (Reason: Pain) Qty: 60 0RF Referrals: Maria Elena Gibson MD [Physician] - Jim Tovar MD [Primary Care Provider] - Stand Alone Forms: Patient Portal/API
[2022-04-15 20:42] LABS: Appearance Urine UA CLEAR; Bilirubin Urine UA NEGATIVE (NEGATIVE); Color Urine UA YELLOW; Glucose Urine UA NEGATIVE (Negative); Ketones Urine UA NEGATIVE (NEGATIVE); Leukocyte Esterase Urine UA NEGATIVE (NEGATIVE); Nitrite Urine UA NEGATIVE (Negative); Occult Blood Urine UA 2+ (Negative); Protein Urine UA NEGATIVE (Negative); Urobilinogen Urine UA 0.2 E.U./dL (0.2)
[2022-04-15 20:49] LABS: RBC Urine 5-10/HPF (0-5/HPF); WBC Urine 1-5/HPF (0-5/HPF)
[2022-04-15 20:50] LABS: Bacteria Urine Few (2-10); Culture Indicated Urine Cult Not Indicated; Hyaline Casts Urine 1-5/LPF
== END 2022-04-15 21:24 | disposition home or self-care (01) ==
PROVIDERS: Emergency Provider Emergency Medicine; Family Provider Family Medicine; PCP Family Medicine
DX: R33.8 Other retention of urine (principal)
CPT/HCPCS: 51798; 81001; 87077; 87086; 87186; 99283

== ENCOUNTER → 2022-05-21 14:27 | Outpatient (CLI) | payer MEDICARE, OTHER, SELFPAY ==
[2021-03-13 15:29] VITALS: BMI 30.8
== END ==
PROVIDERS: Family Provider Family Medicine; PCP Family Medicine; Visit Provider Specialist
DX: T83.511A Infection and inflammatory reaction due to indwelling urethral catheter, initial encounter (principal); N40.1 Benign prostatic hyperplasia with lower urinary tract symptoms; N13.8 Other obstructive and reflux uropathy; R33.9 Retention of urine, unspecified; N39.0 Urinary tract infection, site not specified
CPT/HCPCS: 51798; 81002; 87077; 87086; 87186; 99215

== ENCOUNTER → 2022-11-08 15:05 | Outpatient (CLI) | payer MEDICARE, OTHER, SELFPAY ==
[2021-03-13 15:29] VITALS: BMI 30.8
--- NOTE | 2022-11-08 | DI.MRI.S_ITS ---
PROCEDURE: MR SHOULDER RT WO CON INDICATIONS: Adhesive capsulitis of right shoulder TECHNIQUE: Noncontrast oblique coronal T2 fast spin echo with fat saturation, oblique sagittal T1 spin echo and T2 fast spin echo with fat saturation, axial T1 spin echo and T2 fast spin echo with fat saturation through the shoulder. COMPARISON: None. FINDINGS: Image quality: Excellent. Rotator cuff: There is full-thickness rupture of distal supraspinatus at its insertion on humeral head with up to 3.2 cm medial retraction of torn tendon fibers to the level of acromioclavicular joint. Moderate grade articular surface partial-thickness tear involving distal infraspinatus at its insertion on the humeral head is also noted extending to musculotendinous junction. Low-grade intrasubstance partial-thickness tear involving distal subscapularis is seen. Sagittal images demonstrate moderate to severe supraspinatus muscle atrophy. Bones and bursae: No bone marrow contusions or fractures. Moderate to severe acromioclavicular joint osteoarthritic changes are seen with joint space narrowing and prominent downward osteophyte formation depressing the musculotendinous junction of supraspinatus. Moderate glenohumeral joint osteoarthritic changes also noted. There is moderate amount of joint effusion and subacromial subdeltoid bursal fluid. No gross loose bodies. Capsule and soft tissues: Signal abnormality and fraying of superior anterior labrum at 12-1 o'clock position is seen suggestive of superior anterior labral tear. The long head of the biceps tendon appears markedly attenuated intra-articularly. The rotator interval appears normal, without fibrosis. The coracohumeral ligament is normal in thickness. IMPRESSION: 1. Full-thickness rupture of distal supraspinatus at its insertion on the humeral head with up to 3.2 cm medial retraction of torn tendon fibers to the level of acromioclavicular joint. Moderate to severe supraspinatus muscle atrophy. 2. Moderate grade articular surface partial-thickness tear involving distal infraspinatus extending to musculotendinous junction. Low-grade intrasubstance partial-thickness tear involving distal subscapularis. 3. Moderate to severe acromioclavicular joint osteoarthritis and moderate glenohumeral joint osteoarthritis. No fracture or dislocation. Moderate amount of joint effusion and subacromial subdeltoid bursal fluid. 4. Suggestion of superior anterior labral tear at 12 to 1 o'clock position. 5. Suggestion of moderate grade partial-thickness tear involving intra-articular portion of proximal long head of biceps tendon. Dictated by: Jostin Galvan M.D. on 11/08/2022 at 19:30 Approved by: Jostin Galvan M.D. on 11/08/2022 at 19:34
== END ==
PROVIDERS: Family Provider Family Medicine; PCP Family Medicine; Referring Provider Family Medicine; Visit Provider Family Medicine
DX: M75.121 Complete rotator cuff tear or rupture of right shoulder, not specified as traumatic (principal); M75.01 Adhesive capsulitis of right shoulder; M25.511 Pain in right shoulder; M25.611 Stiffness of right shoulder, not elsewhere classified; S46.211A Strain of muscle, fascia and tendon of other parts of biceps, right arm, initial encounter; M19.011 Primary osteoarthritis, right shoulder; M25.411 Effusion, right shoulder
CPT/HCPCS: 73221

== ENCOUNTER 2023-05-01 09:19 | Day surgery (SDC) | payer MEDICARE, OTHER, SELFPAY ==
[2021-03-13 15:29] VITALS: BMI 30.8
[2023-04-22 09:41] VITALS: BMI 32.5
[2023-05-01] VITALS (11 sets, daily range): BP systolic 121–166; BP diastolic 59–85; PULSE 62–75; RESP 10–17; TEMP 35.8–36.9; O2SAT 91–99; BMI 31.0
--- NOTE | 2023-05-01 | PATH_ITS ---
[facility] Accession Number: [id number] No. of containers..01 Tissue . 01 Material submitted: . femur - LEFT FEMUR, BIOPSY . 01 Diagnosis: LEFT FEMUR, BIOPSY: Hypocellular lobular cartilage present within unremarkable marrow and trabecular bone fragments. No histologic features of bone permeation and cytologic atypia. See comment. . [facility] 05/07/2023 1321 Local . 01 Comment: The findings are consistent with an enchondroma. Histologic features of malignancy are not identified, however, the features need correlation with clinical and radiologic evaluation. . 01 Electronically signed: . Carolyn Layne MD, Pathologist NPI- [id number] . 01 Gross description: . The specimen is received in formalin, labeled with the patient's name, , and left femur, and consists of multiple nolasco, gritty soft tissue fragments consistent with osseous tissue aggregating to 3.0 x 2.5 x 0.3 cm. Filtered and submitted entirely in cassettes A1-A2 following decalcification. ([id number]) /[facility] 05/07/2023 1319 Local . 01 Pathologist provided ICD-10: D16.22 . 01 CPT . 384902, [id number] Specimen Comment: A courtesy copy of this report has been sent to [phone] Performed at: 01 [facility] [address] [place] [address], [place], [place] [id number] MD Geoff Rodriguez MD Phone: [phone]
--- NOTE | 2023-05-01 06:00 | DI.RAD.S_ITS ---
PROCEDURE: XR HIP W PEL IF DONE LT 2V INDICATIONS: ANDREY TECHNIQUE: 2 view(s) of the hip acquired. COMPARISON: [facility], CR, XR HIP W PEL IF DONE RT 2V, 03/13/2021, 14:08. FINDINGS: Bones: Patient is status post left hip arthroplasty, with hardware components in expected positions. The hip joint appears congruent. The visualized bony structures appear intact. \\ Status post prior right hip arthroplasty with prosthetic elements in stable position. Soft tissues: Overlying postoperative changes are noted. No suspicious soft tissue densities. IMPRESSION: Expected post-operative appearance of a hip arthroplasty. Approved by: Haylie West M.D. on 05/02/2023 at 7:24
[2023-05-01] MEDS: LACTATED RINGERS 1,000 ML 42 ML IV ×2 (09:52→12:07)
[2023-05-01] MEDS: ACETAMINOPHEN 325 MG TABLET 975 MG PO (09:52)
[2023-05-01] MEDS: PREGABALIN 75 MG CAPSULE PO (09:54)
[2023-05-01] MEDS: FAMOTIDINE 20 MG/2 ML VIAL IV (09:54)
[2023-05-01] MEDS: VANCOMYCIN 1,500 MG/300 ML PIGGYBACK 200 MG IV (10:10)
--- NOTE | 2023-05-01 10:12 | PM.PREOP ---
Pre-operative Note Interval Note History & Physical reviewed/Exam performed by Physician: Yes Changes to H&P: No
--- NOTE | 2023-05-01 10:13 | P.OP_ITS ---
Operative Date/Time/Diagnoses Date of procedure: 05/01/23 Time of procedure: 11:20 Pre-op diagnosis: Severe left hip OA, left femur sclerotic lesion Post-op diagnosis: same Procedure & Clinicians Procedure: Left total hip arthroplasty, open bone biopsy left proximal femur Same procedure as scheduled: Yes Indications: The patient has had progressively worsening left hip pain with radiographic changes consistent with arthritis. He has a lesion on his left proximal femur. It is sclerotic it has been fairly stable it looks most consistent with a benign lesion possibly an enchondroma. Non-operative management has failed and the patient has requested total hip replacement. The risks, benefits and alternatives to surgery were discussed with the patient prior to proceeding. Risks discussed included, but were not limited to, failure to relieve pain, leg length discrepancy, dislocation, stiffness, infection, nerve damage, deep venous thrombosis, pulmonary embolism, stroke, coma, heart attack, permanent paralysis and , as well as the potential need for eventual revision of the prosthetic. Surgeon: Nicki Arredondo Volunteer Services Manager: Hero Henao Anesthesia Type: General and Spinal Operative Notes Findings: Severe left hip OA, findings consistent with bone and medullary canal tissue, adequate stability, adequate bone, very stiff tight hip Closure Type: primary Specimen(s): other (Proximal femur bone biopsy) Prosthetic devices, grafts, tissues, transplants, or devices: Arredondo and Nephew 58 mm R3, neutral poly liner,two 6.5 mm screws, size 10 standard offset anthology, 40 x -4 cobalt chrome head Estimated Blood Loss (mL): 250 Blood products transfused: none Procedure in detail: The patient was seen in the pre-operative area, where the patient identified the right hip as the operative site and this was marked with my initials. The patient received pre-operative antibiotics and was taken to the operating room and placed on the operative table in the left lateral decubitus position after satisfactory anesthesia. A realtime court reporter out was performed. The right leg was prepared from the ankle to the iliac crest with ChloroPrep in the usual fashion and draped through sterile drapes. A PA was used during the procedure was essential for intraoperative retraction and safe implantation of the components. The hip was approached through an approximately 20 cm incision centered over the greater trochanter and curving gently posteriorly as it went proximally. This was carried sharply to the fascia sayda, which was divided and retracted with a self retaining retractor. The trochanteric bursa was excised with care being taken to avoid the sciatic nerve, which was identified and protected throughout the case. The short external rotators were incised and the capsulomuscular flap was raised and tagged for later repair. The hip was dislocated, and a femoral neck osteotomy performed approximately 15 mm above the lesser trochanter. Retractors were placed around the femur. The canal was opened with a box cutting osteotome, followed by a T handled reamer and a lateralizing reamer. A long Cloward Ronquer was used to reach down the medullary canal and bone was carefully removed from sclerotic lesion including using a backbiter. The deep bone biopsy was sent to pathology for analysis. The chili pepper broach was then used, followed by sequential broaching until there was good stability of the broach in the femur. Retractors were placed to expose the acetabulum. The labrum and central soft tissues were removed. Reaming was performed initially going up in 2 mm increments, then 1 mm increments until good bite was obtained with an odd sized reamer. The cup 1 mm larger than the last reamer was then inserted using the appropriate anteversion guides. It was further stabilized with two screws. A trial neutral liner was placed. The broach was placed in the canal. A trial head and neck were then placed and the hip relocated and checked for leg length and stability. An intraoperative film confirmed the component position and no evidence of fracture. The patient was stable in the position of sleep, of squatting, and could be put through a range of motion with 45 degrees internal rotation without dislocation. At 90 degrees flexion, internal rotation to 70 ? was possible before dislocation. This was felt to be satisfactory and the appropriate components were opened, and the trials were removed. The acetabular liner was impacted into position. The final stem was then impacted into the prepared femoral canal. A brief Betadine soak was performed while trialing with head options. The hip was meticulously irrigated with normal saline. Finally the femoral head was impacted onto the stem. The acetabulum was cleared of all material and the hip relocated one final time. The capsulomuscular flap was then repaired to the greater trochanter though an awl hole using the tag sutures. The short external rotators were repaired with a nonabsorbable suture. A deep drain was placed and brought out anteriorly. The fascia sayda was closed with Vicryl. The subcutaneous layer was closed with barbed sutures and Dermabond. An Aquacel Ag dressing was applied and the patient was taken to recovery having tolerated the procedure well. Complications: none Post-operative Condition: stable Disposition: Acute Care Plan for aftercare: The patient will be maintained on a standard total hip replacement protocol with weight bearing as tolerated and posterior hip precautions. The patient will receive Aspirin and sequential compression devices for DVT prophylaxis. The patient will be discharged home when safe for the home environment.
[2023-05-01] MEDS: CEFAZOLIN 2 GM/100 ML PREMIX 100 ML IV ×2 (11:05→20:08)
[2023-05-01] MEDS: TRANEXAMIC ACID 1,000 MG VIAL 1000 MG INJ ×2 (11:10→12:50)
[2023-05-01] MEDS: BUPIVACAINE 0.25% (PF) 60 ML, EPINEPHrine 0.3 MG INJ (12:04)
[2023-05-01] MEDS: BUPIVACAINE LIPOSOME 266 MG/20 ML VIAL INJ (12:04)
[2023-05-01] MEDS: EPINEPHrine 1 MG/ML IRR (12:09)
--- NOTE | 2023-05-01 12:40 | DI.RAD.S_ITS ---
PROCEDURE: XR PELVIS 1-2V INDICATIONS: LEFT TOTAL HIP REPLACEMENT TECHNIQUE: Intra-operative view of the pelvis and hip acquired. COMPARISON: [facility], CR, XR PELVIS 1-2V, 03/13/2021, 12:39. FINDINGS: Bones: Intraoperative devices prior to placement of arthroplasty prostheses are in expected positions. No fractures or suspicious bony lesions. Soft tissues: Overlying surgical retractors are present, along with other intraoperative changes. IMPRESSION: Intraoperative fluoroscopic images of a left hip arthroplasty. Dictated by: Mariely Contreras M.D. on 05/01/2023 at 13:12 Approved by: Mariely Contreras M.D. on 05/01/2023 at 13:12
[2023-05-01] MEDS: LACTATED RINGERS 1,000 ML 100 ML IV (14:15)
[2023-05-01] MEDS: ACETAMINOPHEN 325 MG TABLET 650 MG PO ×2 (17:16→23:27)
[2023-05-01] MEDS: TAMSULOSIN 0.4 MG CAPSULE PO (20:10)
[2023-05-01] MEDS: ASPIRIN EC 81 MG TABLET PO (20:11)
[2023-05-01] MEDS: lisinopriL 20 MG TABLET PO (20:11)
[2023-05-01] MEDS: ATORVASTATIN 20 MG TABLET 10 MG PO (20:13)
[2023-05-01] MEDS: IBUPROFEN 600 MG TABLET PO (21:22)
[2023-05-02] VITALS: BP 114/59; PULSE 71; RESP 16; TEMP 36.2; O2SAT 93
[2023-05-02] MEDS: OXYCODONE IR 5 MG TABLET PO ×2 (00:07→04:04)
[2023-05-02 04:00] VITALS: BP 126/65; PULSE 62; RESP 17; TEMP 36.2; O2SAT 95
[2023-05-02] MEDS: CEFAZOLIN 2 GM/100 ML PREMIX 100 ML IV (04:04)
[2023-05-02 04:31] LABS: Hematocrit 47.2 % (41-53); Hemoglobin 16.1 g/dL (13.5-17.5)
[2023-05-02] MEDS: ACETAMINOPHEN 325 MG TABLET 650 MG PO (07:00)
--- NOTE | 2023-05-02 08:00 | P.PN_ITS ---
Subjective Subjective Date Patient Seen: 05/02/23 Time Patient Seen: 07:30 Interval history: Procedure & Clinicians Procedure: Left total hip arthroplasty, open bone biopsy left proximal femur Same procedure as scheduled: Yes Indications: The patient has had progressively worsening left hip pain with radiographic changes consistent with arthritis. He has a lesion on his left proximal femur. It is sclerotic it has been fairly stable it looks most consistent with a benign lesion possibly an enchondroma. Non-operative management has failed and the patient has requested total hip replacement. The risks, benefits and alternatives to surgery were discussed with the patient prior to proceeding. Risks discussed included, but were not limited to, failure to relieve pain, leg length discrepancy, dislocation, stiffness, infection, nerve damage, deep venous thrombosis, pulmonary embolism, stroke, coma, heart attack, permanent paralysis and , as well as the potential need for eventual revision of the prosthetic. Surgeon: Nicki Arredondo Construction Field Engineer: Hero Henao Anesthesia Type: General and Spinal Operative Notes Findings: Severe left hip OA, findings consistent with bone and medullary canal tissue, adequate stability, adequate bone, very stiff tight hip Closure Type: primary Specimen(s): other (Proximal femur bone biopsy) Prosthetic devices, grafts, tissues, transplants, or devices: Arredondo [employer] Nephew 58 mm R3, neutral poly liner,two 6.5 mm screws, size 10 standard offset anthology, 40 x -4 cobalt chrome head Estimated Blood Loss (mL): 250 Blood products transfused: none Patient states she is doing well this morning. Pain is controlled with oral medications. Denies any fever chills nausea or vomiting. Did have difficulty trying to urinate on his own last night. Says that he did have to use a catheter 1 time to void. They have since removed the catheter and he is able to void on his own. He states that hopefully after working with physical therapy he can be discharged home via [facility]. Exam Vital Signs (past 8 hours): - 05/02/23 04:00 05/02/23 07:00 Temperature 97.1 F L Pulse Rate 62 Respiratory Rate 17 Blood Pressure 126/65 Pulse Oximetry 95 Oxygen Delivery Method Room Air Oxygen Flow Rate 0 Oxygen Delivery Method Room Air Oxygen Flow Rate 0 Narrative Exam Narrative: Patient is found lying comfortably in bed. Dressing appears to be well- maintained. No signs of bordering erythema. No pain with posterior compression of the thigh or calf. Sensation grossly intact over the left and right lower extremities. Has some pain and difficulty with flexion at the knee. Pain is relieved when pillow placed under left knee. Able to dorsiflex and plantar flex against resistance at the left ankle. Const General: cooperative Resp Effort & Inspection: normal respiratory effort and able to speak in complete sentences Objective Labs 05/02/23 04:17 Labs: Laboratory Results - last 24 hr 05/02/23 04:17 Hgb 16.1 Hct 47.2 PFSH Medical History (Updated 04/22/23 @ 10:51 by Dorota Duque RN) HLD (hyperlipidemia) Ascending aorta enlargement History of urinary retention BPH w urinary obs/LUTS Unspecified disorder of prostate (06/22/04) Hx of valvular heart disease Hx of osteoarthritis Hx of hepatic disease Hx of congestive heart failure Hx of acute arthritis HTN (hypertension) Inguinal hernia Surgical History (Updated 04/22/23 @ 10:11 by Dorota Duque RN) History of heart surgery (05/09/22) 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) Hx of cataract surgery History of hip replacement History of left cataract surgery Hx of right inguinal hernia repair (1961) Status post cholecystectomy Family History Father Prostate cancer Social History marital status: number of children: 2 household members: spouse occupational status: other leisure activities: sports other: Golf Smoking Status: Former smoker alcohol intake: former caffeine: Yes Type(s) of exercise: walking Assessment & Plan Post-op Postoperative Procedures: Procedures Operation Date: 05/01/23 10:45 Actual Procedure Side Surgeon p Total Hip Arthroplasty posterior approach, & bone biopsy (deep, open) Left Nicki Arredondo MD Postoperative day: 1 Postoperative status: doing well Postoperative plan: routine post-op care Postoperative plan narrative: The patient will be maintained on a standard total hip replacement protocol with weight bearing as tolerated and posterior hip precautions. Plan to discharge home pending physical therapy approval. Patient is prescribed oxycodone 5 mg take 1 tablet every 4 hours as needed for pain. Patient will start aspirin 81 mg 1 pill twice a day for DVT prophylaxis. Patient will start physical therapy within the next 5-7 days. Patient will follow up at [facility] in 2 weeks for wound check. Time Spent With Patient Time with patient: less than 15 minutes Quality VTE Deep Vein Thrombosis/Pulmonary Embolism Present on Admission: No
[2023-05-02] MEDS: allopurinoL 100 MG TABLET PO (08:10)
[2023-05-02] MEDS: TAMSULOSIN 0.4 MG CAPSULE PO (08:10)
[2023-05-02] MEDS: CHOLECALCIFEROL (VITAMIN D3) 1,000 UNIT TABLET 2000 UNIT PO (08:10)
[2023-05-02] MEDS: MAGNESIUM OXIDE 400 MG TABLET PO (08:10)
[2023-05-02] MEDS: ASPIRIN EC 81 MG TABLET PO (08:10)
--- NOTE | 2023-05-02 09:00 | PT.IIE ---
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) Hx of cataract surgery Hx of right inguinal hernia repair (1961) Status post cholecystectomy Medical History (Last Updated 04/22/23 @ 10:51 by Dorota Duque RN) 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 History of urinary retention HLD (hyperlipidemia) HTN (hypertension) Hx of acute arthritis Hx of congestive heart failure Hx of hepatic disease Hx of osteoarthritis Hx of valvular heart disease Inguinal hernia Unspecified disorder of prostate (06/22/04) Physical Therapy Inpatient Evaluation/Re-Eval M1 PT/OT-IP Prior Functional Status Start: 05/02/23 10:49 Freq: NEEDED Status: Discharge Protocol: Document 05/02/23 10:49 [facility] (Rec: 05/02/23 11:02 [facility] [id number]) Medical Review Prior Functional Status Communication Independent Mobility and Gait Pt states able to walk without a walker but limited distance due to his pain. Activities of Daily Living and IADL's Pt has pain with ADl and IADL needs. Social History Household Members spouse Living Arrangements House Number of Floors (Floors) One Floor Home Environment Walk in Shower,Ramp Home Equipment Front Wheel Walker,Long Handled Sponge,Long Handled Shoe Horn,General Utility Worker,Sock Aid, Grab Bars In Shower M1 PT/OT-IP Prior Functional Status Start: 05/02/23 13:41 Freq: NEEDED Status: Active Protocol: Document 05/02/23 09:00 AB (Rec: 05/02/23 13:57 AB [id number]) Medical Review Prior Functional Status Medical History Reviewed Yes Communication able to make needs known Mobility and Gait pt stated that he 2as modified independent with all mobilities and ambulation without AD Activities of Daily Living and IADL's per OT note: Pt has pain with ADl and IADL needs. Social History Household Members spouse Living Arrangements House Number of Floors (Floors) One Floor Number of Stairs To Enter/Railing? no steps to enter Home Environment High Toilet,Walk in Shower Home Equipment Front Wheel Walker,Hand Held Shower,Grab Bars In Shower M2 PT-IP Current Condition Start: 05/02/23 13:41 Freq: NEEDED Status: Active Protocol: Document 05/02/23 09:00 AB (Rec: 05/02/23 13:57 AB [id number]) Physical Therapy Current Condition Current Condition Evaluation Date 05/02/23 Treatment Diagnosis s/p L ANDREY posterior; difficulty in walking Onset Date 05/01/23 M3 PT-IP Subjective Start: 05/02/23 13:41 Freq: NEEDED Status: Active Protocol: Document 05/02/23 09:00 AB (Rec: 05/02/23 13:57 AB [id number]) Subjective Physical Therapy Visit Type Type Initial Evaluation Visit Start Time 09:00 Visit Stop Time 09:55 Number of [employer] Visits 0 Physical Therapy Visit Comments Patient Comments agreeable to do PT Therapy Pain Assessment Pain When Pain Assessed At Rest Pain Present Pain Present Pain Reported Location Left Hip Intensity 3 Scale Used Numeric (0 - 10) Pain Management Techniques Apply Cold,Distraction, Modification of Treatment,Re- positioning,Timing of Activity with Medications M4 PT-IP Mobility and Gait Start: 05/02/23 13:41 Freq: NEEDED Status: Active Protocol: Document 05/02/23 09:00 AB (Rec: 05/02/23 13:57 [id number]) PT-Bed Mobility Assessment Supine to Sit Supine to Sit Standby Assistance Sit to Supine Sit to Supine Standby Assistance PT-Transfer Assessment Sit to and From Stand Sit to and from Stand Standby Assistance,Contact Guard Assistance,Moderate Assistance Equipment Transfer Assistive Device Gait Belt,Front Wheeled Walker Orthotic/Prosthetic Devices or Brace: No Transfers Transfer Destination Bed,Chair Transfer Technique ambulated Transfer Ability Level of Assist Standby Assistance,1 Person Assistance,Use of Upper Extremities Comments Mobility Comments pt sitting on the chair and agreeable to do PT. obtained PLOF and home set up from pt. post-op folder provided and reviewed contents with pt. educated pt regarding L hip posterior precautions. pt was able to recall his precautions. BP in sittin/59. spouse and daughter arrived. completed sit to stand from chair CGA with heavy UE use due to posterior trunk leaning with unsteady initial standing. instructed pt to sit back down and required mod A for controlled descent. pt stated that he usually plops back. educated pt regarding sit<> stand techniques to decrease UE use and improve initial standing and also assist with descent. pt presents with decrease pelvic anterior tilting with back tighness even in sitting affecting sit to stand and trunk control. pt completed sit to stand again CGA. ambulated in room ~ 20 ft using FWW SBA and sat on the EOB. pt completed sit<>supine SBA. completed sit to stand from EOB SBA to CGA and ambulated in room using FWW ~ 50 ft SBA. pt sat back on the chair. educated on safety. informed spouse and daughter to assist pt if needed and to provide cues for precautions and safety. pt and family without further concerns. Gait Assessment Gait Gait Assistance Required: Standby Assistance Distance (Feet) 50 Able to Maintain Weight Bearing Status Yes During Gait Assistive Devices Assistive Device Gait Belt,Front Wheeled Walker Orthotic/Prosthetic Devices or Brace: No Gait Deviations General Gait Pattern Antalgic,Decreased Stride Length,Decreased Feet Clearance Factors Limiting Gait Function Factors Limiting Gait Function Decreased Activity Tolerance, Decreased Strength,Limited Range of Motion,Pain,Poor Balance,Poor Safety Awareness PT-Balance Assessment Sitting Balance and Reactions Static Sitting Balance Ability Normal Dynamic Sitting Balance Ability Good Standing Balance and Reactions Static Standing Balance Ability Fair Dynamic Standing Balance Ability Fair Device Used FWW M5 PT-IP Objective Assessments Start: 05/02/23 13:41 Freq: NEEDED Status: Active Protocol: Document 05/02/23 09:00 AB (Rec: 05/02/23 13:57 [id number]) Orientation Orientation/Cognition Level of Alertness Alert Orientation Name,Place,Situation Language Function Ability No Deficits Noted Safety Awareness Decreased Safety Awareness Memory Description No Deficits Noted Gross Range of Motion Lower Extremity ROM Assessment Within Functional Limits Strength Lower Extremity Strength Assessment Left Impaired Hip 3+/5 Muscle Tone Muscle Tone WNL Yes M6 PT-IP Treatment Start: 05/02/23 13:41 Freq: NEEDED Status: Active Protocol: Document 05/02/23 09:00 AB (Rec: 05/02/23 13:57 [id number]) Physical Therapy Treatment Education Education Provided Precautions,Weight Bearing Status,Post-Op Packet,Safety M7 PT-IP Assessment and Plan Start: 05/02/23 13:41 Freq: NEEDED Status: Active Protocol: Document 05/02/23 09:00 AB (Rec: 05/02/23 13:57 AB [id number]) PT Summary Assessment and Plan Potential Rehabilitation Potential Fair Status of Condition at Evaluation Stable Summary Impairments Pain,ROM,Strength,Balance, Coordination,Sensation,Tone, Cognition,Bed Mobility, Transfers,Gait,Activity Tolerance Assessment Summary pt is an 78 y/o M s/p L ANDREY posterior POD 1. pt has L hip posterior precautions and is WBAT. pt requiring SBA to CGA with mobilityusing FWW and will have his spouse to assist him. pt has outpt PT set up. pt may go home when medically stable. Goals Bed Mobility Goal Independent Transfer Goal Independent,Front Wheeled Walker Gait Goal Independent,Front Wheel Walker Gait Distance 200 Days to Meet Goals 5 Frequency of Treatment Frequency Of Treatment Twice a Day Treatment Plan Physical Therapy Treatment Plan Bed Mobility Training,Transfer Training,Gait Training, Therapeutic Exercise,Balance Retraining,Post Op Education, Discharge Planning,Hot or Cold Pack,Neuromuscular Re-ed, Coordination Retraining,Manual Therapy Precautions Posterior Hip Precautions No Hip Flexion > 90 degrees,No Hip Internal Rotation,No Hip Adduction Weight Bearing Status Weight Bearing Status Weight Bear as Tolerated Allowed Weight Bearing Amount (enter % LLE WBAT or #) (%) Recommendations To Nursing Amount of Assist Needed 1 Person Assist Discharge Recommendations PT Discharge Recommendations Home with Assistance, Outpatient PT Transportation Needs at Discharge Private Vehicle
[2023-05-02 10:00] VITALS: BP 116/66; PULSE 75; RESP 16; TEMP 36.2; O2SAT 99
--- NOTE | 2023-05-02 10:23 | OT.IP.EVAL ---
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 History of urinary retention HLD (hyperlipidemia) HTN (hypertension) Hx of acute arthritis Hx of congestive heart failure Hx of hepatic disease Hx of osteoarthritis Hx of valvular heart disease Inguinal hernia Unspecified disorder of prostate (06/22/04) Surgical History (Last Updated 04/22/23 @ 10:11 by Dorota Duque RN) History of heart surgery (05/09/22) History of hip replacement History of left cataract surgery 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 Activities of Daily Living and IADL's Pt has pain with ADl and IADL needs. Social History Household Members spouse Living Arrangements House Number of Floors (Floors) One Floor Home Environment Walk in Shower,Ramp Home Equipment Front Wheel Walker,Long Handled Sponge,Long Handled Shoe Horn,Bad Cloth Checker,Sock Aid, Grab Bars In Shower M2 OT-IP Current Condition Start: 05/02/23 10:49 Freq: Status: Active Protocol: Document 05/02/23 10:49 [facility] (Rec: 05/02/23 11:02 [facility] [id number]) Occupational Therapy Current Condition Current Condition Evaluation Date 05/02/23 Treatment Diagnosis S/P L ANDREY posterior Diagnosis Onset Date 05/01/23 Post Operative Precautions Posterior Hip Precautions No Hip Flexion > 90 degrees,No Hip Internal Rotation,No Hip Adduction M3 OT- IP Subjective and Pain Start: 05/02/23 10:49 Freq: Status: Active Protocol: Document 05/02/23 10:49 [facility] (Rec: 05/02/23 11:02 [facility] [id number]) OT- Subjective Occupational Therapy Visit Type Type Initial Evaluation Visit Start Time 10:05 Visit Stop Time 10:23 Occupational Therapy Visit Comments Patient Comments Pt wanting to use the bathroom and get dressed. Patient/Caregiver Goals To go home. OT Pain Assessment Pain When Pain Assessed During Mobility Pain Present Pain Present Pain Reported Location Right Hip Intensity 7 Scale Used Numeric (0 - 10) M4 OT- IP ADL's Start: 05/02/23 10:49 Freq: Status: Active Protocol: Document 05/02/23 10:49 [facility] (Rec: 05/02/23 11:02 [facility] [id number]) OT [id number] General Evaluation Self-Feeding Ability Independent OT ADL-Grooming Comments OT Grooming Comments Pt refused. OT ADL-Oral Care Comments Oral Care Comments Pt refused. OT ADL-Dressing General Eval Upper Body Dressing Ability Independent Lower Body Dressing Ability Minimal Assistance Areas Needing Assistance Socks,Shoes Assistive Devices Dressing Assistive Devices Bad Cloth Checker,Sock Aid Comments OT Dressing Comments Pt wanting to stand to get dressed and insisted to pt to try to sit down to get dressed to prevent from falling as pt has a history of falls. Pt agreed and able to use LB dressing equipment for dressing needs. OT ADL-Toileting General Evaluation Toileting Ability Standby Assistance Comments OT Toileting Comments Pt able to urinate into the urinal while standing with FWW . Educated to use the urinal at night or have assist. Also FWw can be used over toilet while standing to urinate as another option. Educated best to stand and wipe after bowel movements. OT ADL-Bathing Comments OT Bathing Comments Pt states will just stand to shower , suggested to have a shower chair. M5 OT- IP IADL's Start: 05/02/23 10:49 Freq: Status: Active Protocol: Document 05/02/23 10:49 [facility] (Rec: 05/02/23 11:02 [facility] [id number]) OT-Instrumental Activities of Daily Living Deficits IADL Deficits Identified Deficits Home Safety Awareness Home Safety Comments Pt a bit insistent on his care and would benefit from at least supervision for his safety with his hip precautions for ADl and mobility needs. Medication Management Medication Management Comments Best to have assist. Money Management Money Management Caregiver Provides Assistance Meal Preparation Meal Preparation Caregiver Provides Assist Carpenter Maintenance Carpenter Maintenance Caregiver Provides Assist M6 OT- IP Functional Cognition Start: 05/02/23 10:49 Freq: Status: Active Protocol: Document 05/02/23 10:49 [facility] (Rec: 05/02/23 11:02 [facility] [id number]) Cognitive Factors Limiting Selfcare Function Cognitive Ability Level of Alertness Alert Patient Orientation Name,Place,Situation Attention Span Ability Capable of Focused Attention, Capable of Sustained Attention Ability to Follow Commands Able to Follow One Step Commands Safety Awareness Decreased Ability to Apply Precautions,Underestimates Need for Assistance Cognitive Comments Cognitive Assessment Comments Pt needing reminders to incorporate his hip precautions for ADl and mobility needs. Pt needing cues to slow down as pt is a bit impulsive as well. OT- Vision and Hearing OT- Hearing Assessment OT- Hearing Assessment WFL OT- Vision Assessment Visual Acuity Glasses For Reading Visual Attentiveness WFL Occular Pursuits WFL M7 OT- IP Mobility and Balance Start: 05/02/23 10:49 Freq: Status: Active Protocol: Document 05/02/23 10:49 [facility] (Rec: 05/02/23 11:02 [facility] [id number]) OT-Transfer Assessment Sit to and From Stand Sit to and from Stand Contact Guard Assistance Transfers Transfer Ability Standby Assistance,Contact Guard Assistance Technique Transfer Destination Chair,Toilet Transfer Technique Stand Step Pivot Devices Transfer Assistive Devices Gait Belt,Front Wheeled Walker Comments Mobility Comments CGA/SBA to stand to FWW . OT- Balance Assessment Sitting Balance and Reactions Static Sitting Balance Ability Good Dynamic Sitting Balance Ability Good Standing Balance and Reactions Static Standing Balance Ability Fair Dynamic Standing Balance Ability Fair M8 OT- IP Objective Assessments Start: 05/02/23 10:49 Freq: Status: Active Protocol: Document 05/02/23 10:49 [facility] (Rec: 05/02/23 11:02 [facility] [id number]) OT Gross Range of Motion Upper Extremity Range of Motion Assessment Right Impaired OT Strength Upper Extremity Strength Assessment Right Impaired M9 OT- IP Assessment and Plan Start: 05/02/23 10:49 Freq: Status: Active Protocol: Document 05/02/23 10:49 [facility] (Rec: 05/02/23 11:02 [facility] [id number]) OT Summary Assessment and Plan Potential Rehabilitation Potential Excellent Analytic Complexity at Evaluation Low Summary OT Impairments Pain,Strength,Balance, Functional Mobility,Grooming, Dressing,Toileting,Bathing, Toilet Transfers,Shower Transfers Progress Towards Goals Progressing Toward Goals Assessment Summary Pt low complexity and main barriers are pain, a bit impulsive and insistent on his care, needing reminders to incorporate his hip precautions for all ADl and mobility needs. Pt has a supportive family to assist with his needs and to go to outpt PT. Goals Grooming Goal Independent Dressing Goal Independent,Bad Cloth Checker,Sock Aid Toileting Goal Independent Bathing Goal Standby Assistance Toilet Transfer Goal Independent Shower Transfer Goal Standby Assistance Days to Meet Goals 5 Frequency of Treatment Frequency Of Treatment Once a Day Treatment Plan OT Treatment Plan ADL Training,Functional Mobility,Patient/Family Education,Discharge Planning Discharge Recommendations OT Discharge Recommendations Home with Assistance, Outpatient PT Home Equipment Needs Shower chair Transportation Needs at Discharge Private Vehicle
--- NOTE | 2023-05-02 12:25 | CM.DANOTE ---
DCP Brief Assessment Note Pt is an 78yo M on [place] here for planned left hip surg with Dr. Arredodno. Pt is POD1. PCP Inez Jason Payer Medicare and OUTREACH COUNSELOR reviewed EMR. Pt cleared to dc today home with family. OT/PT rec home with assistance. OUTREACH COUNSELOR entered room and introduced self and role. Pt on way out the door as this OUTREACH COUNSELOR was coming in room. Pt accompanied by spouse and dtr and grandchildren at bedside. Eager to dc home. Report no CM needs. [place] ferry [place]- already have reservation no need for priority boarding pass. Plan: pt to dc home today with family support. No CM needs identified. CM team will follow as needed. ERNESTO Anderson Discharge Planning/Care Management CM Discharge Assessment Start: 05/02/23 12:23 Freq: Status: Active Protocol: Document 05/02/23 12:23 (Rec: 05/02/23 12:24 [id number]) Discharge Planning Assessment Assigned Superintendent Plant ERNESTO Vazquez DPOA/Assigned Designee Name Vega Cooper, spouse Contact Information [phone] Advance Directives? Yes Advance Directives on File No History Provided By Patient,Medical Record Prior Living Arrangements House Household Members spouse Type of transporation used prior to Drives own vehicle admit Independent with ADL's Yes Is patient alert and oriented? Yes DME Already Rented / Owned FWW / Walker Patient/Family Preference OP PT Therapy Discharge Plan Home Transportation Arrangement Spouse plans to provide transport at d/c Referrals Initiated None needed Whiteboard Updated in Patient Room with Yes name and ext. # of Superintendent Plant Review Status In Process Next Review Type Continued Stay Review Pre-Anesthesia Assessment Start: 04/22/23 09:41 Freq: Status: Discharge Protocol: Document 04/22/23 09:41 CAB (Rec: 04/22/23 11:00 CAB [id number]) Pre-Anesthesia Assessment Preferred Name Gregory Patient Information Reviewed Via Phone Assessment Assessment Completed With Patient Diagnostic Results BMP/CMP,CBC,EKG Comment Outside labs/EKG scanned Primary Care Provider Inez Jason Seen Specialist in Last 12 Months Yes Specialist Seen Slack Line Yarder,Orthopedist, Church Business Administrator,Urologist,Other Comment GI Primary Language Yoruba Preferred Language Yoruba Cable Mock Up Assembler Required No Height 175.26 cm Weight 99.79 kg Body Mass Index (BMI) 32.5 Hearing Ability Normal Visual Impairment No Limitations Visual Assist None Dentition Type Teeth, Natural Present Barriers to Learning None Hx Anesthesia Reactions No Hx Family Anesthesia Reaction No Hx Malignant Hyperthermia No Hx Blood Transfusions No Hx Blood Transfusion Reaction No Anesthesia Review Requested Yes: Surgeon requested re: Cardiac history. Metal Bonder No alcohol intake former Smoking Status Former smoker how long ago did patient quit smoking 1981 Substance Use Type does not use Pain Present Pain Reported Musculoskeletal Symptoms Abnormal Gait,Difficulty Walking,Joint Pain,Limited Range of Motion,Muscle Cramps, Neck Pain History of Falling (Recent or History of Yes ) Patient is completely paralyzed or No completely immobile Mental Status Oriented to own ability Is patient on oxygen? No Does patient have [place]/SOB No Hx Sleep Apnea No CPAP/BIPAP use not prescribed Currently Taking a Beta Callum No Can You Climb a Flight of Stairs Without Yes SOB Hx Chest Pain No Hx SOB No Hx Syncope or Dizziness No Anti-Coagulant Therapy Yes: ASA 81mg -advised to stay on per Cardiology Has a Slack Line Yarder Yes: Pre-op visit 12/10/[address] Beverly Cardiac Testing Yes Hx Pacemaker/ICD No Pacemaker Rep Required? No Cardiac Clearance Received Yes Comment Cardiac records scanned and in surgery folder for dos Diet Type At Home Regular Dysphagia No Gastrointestinal Symptoms None Urinary Catheter Present No Hx Urinary Self Catheterization No Diabetes No HgbA1C 5.2 Date 04/11/23 Hx Drug Resistant Organism No Presence of External or Internal Medical Yes: Left eye IOL, right hip Devices Received a COVID vaccine? Yes Received all doses? Yes Marital Status Lives With spouse Current Living Arrangements House Number of Floors (Floors) One Floor Support System Spouse Does the Patient Have Assistance After Yes Surgery Patient Discharge Plan Description Return Home Comment Pt advised overnight length of stay per surgeon Feels Safe in Current Environment Yes Been Physically Hurt or Threatened By a No Person in Current Environment Do you have thoughts of harming yourself None or others? Are you currently considering suicide? No Do you have a plan to hurt yourself or No Plan others? Do You Have Any Spiritual Beliefs That No May Affect Your HC Choices? Do You Have Any Cultural Practices That No May Affect Your HC Choices? Comment Church Who Can We Speak to About Patient's Care Family, friends Identifying Code for Release of Patient Declines to issue Information Health Care Proxy/Next of Kin Vega () Health Care Proxy Emergency Contact Name Vega () Emergency Contact Advance Directives? Yes Advance Directives on File No Power of Planishing Press Operator Yes Power of Planishing Press Operator Name Vega Power of Planishing Press Operator
== END 2023-05-02 11:49 | disposition home or self-care (01) ==
LOC: OR 09:22 → AC 09:23
PROVIDERS: Family Provider Family Medicine; PCP Family Medicine; Referring Provider Orthopaedic Surgery; Visit Provider Orthopaedic Surgery
PROC: 0SRB0JZ Replacement of Left Hip Joint with Synthetic Substitute, Open Approach (ICD-10-PCS; CPT 27130; principal; 2023-05-01 10:45)
DX: M16.12 Unilateral primary osteoarthritis, left hip (principal); D16.22 Benign neoplasm of long bones of left lower limb
CPT/HCPCS: 27130; 36415; 72170; 73502; 85014; 85018; 97161; 97165; 97530; 97535; C1776; C9290; J0171; J0690; J1100; J1170; J2310; J2405; J2704; J3010